=== PATIENT | female | born 1980 | race Caucasian/White ===

== ENCOUNTER 2018-07-17 22:40 | Emergency (ER) | payer BC ==
[2018-07-17 22:53] VITALS: BP 116/80
[2018-07-17] MEDS ORDERED: HYDROmorphone 1 MG/ML Syringe IM ONE (23:14)
--- NOTE | 2018-07-17 23:19 | EDM.PDOC ---
ED HPI GENERAL MEDICAL PROBLEM - General Chief Complaint: Headache Stated Complaint: HEADACHE RECENT EYE SURGERY THURSDAY Time Seen by Provider: 07/17/18 22:53 Source of Information: Reports: Patient History Limitations: Reports: No Limitations - History of Present Illness INITIAL COMMENTS - FREE TEXT/NARRATIVE: This is a 38-year-old female. Onset today around 11 AM with a frontal type headache going to her back down her neck and upper back. It is more of a pounding type sensation. She recently had cataract surgery in her right eye and she saw her eye doctor on Thursday and everything was healing well. She has not noticed any change per se in her vision in that right eye other than she can see now wants the cataract is gone. She has a history 4 years ago of having headaches like this that were thought to be due to her hormones in her cycle. She has been eating and drinking despite the pounding type headache. She also states that hurts in her upper back and neck especially if she lies down it seemed like it gets worse. She denies any fever or chills no cold no cough no ear pain no sore throat. generalized head and shoulders Pain Score (Numeric/FACES): 6 - Related Data Allergies Allergy/AdvReac Type Severity Reaction Status Date / Time codeine Allergy Tachycardia Verified 07/17/18 22:53 eletriptan HBr [From Relpax] Allergy Disorientat Verified 07/17/18 22:53 ion ranitidine HCl [From Zantac] Allergy Headache Verified 07/17/18 22:53 Home Meds: Home Meds Ibuprofen 800 mg PO Q8H #20 tablet 03/06/15 [Rx] Orphenadrine [Norflex] 100 mg PO BID PRN #10 tab 07/17/18 [Rx] PARoxetine HCl [Paxil] 20 mg PO DAILY 07/17/18 [History] [id number] [Cataract Opthalmic Solution] 1 ml EYEBOTH ASDIRECTED 07/17/18 [ History] Past Medical History HEENT History: Reports: Cataract Respiratory History: Reports: Asthma Neurological History: Reports: Migraines Psychiatric History: Reports: Depression - Past Surgical History HEENT Surgical History: Reports: Tonsillectomy GI Surgical History: Reports: Cholecystectomy Musculoskeletal Surgical History: Reports: Ganglion Cyst Social & Family History - Family History Family Medical History: Noncontributory - Tobacco Use Smoking Status *Q: Current Every Day Smoker Years of Tobacco use: 20 Packs/Tins Daily: 0.5 - Caffeine Use Caffeine Use: Reports: Coffee, Soda - Recreational Drug Use Recreational Drug Use: No ED ROS GENERAL - Review of Systems Review Of Systems: See Below Constitutional: Denies: Fever, Chills HEENT: Denies: Dental Pain, Eye Discharge, Eye Pain, Rhinitis, Sinus Problem, Throat Pain Respiratory: Denies: Shortness of Breath, Cough Cardiovascular: Reports: No Symptoms Endocrine: Reports: No Symptoms GI/Abdominal: Reports: No Symptoms : Reports: No Symptoms Musculoskeletal: Reports: Neck Pain, Back Pain Skin: Reports: No Symptoms Neurological: Reports: Headache. Denies: Confusion, Dizziness, Syncope, Trouble Speaking, Difficulty Walking Psychiatric: Reports: No Symptoms - Physical Exam Exam: See Below Exam Limited By: No Limitations General Appearance: Alert, WD/WN, No Apparent Distress Eye Exam: Bilateral Eye: Normal Fundi (Limited funduscopic exam appears to be normal), Normal Inspection, PERRL (Both eyes pupils are reactive), Other ( Anterior chamber in both eyes are clear) Ears: Normal External Exam, Normal Canal, Normal TMs Nose: Normal Inspection Throat/Mouth: Normal Inspection, Normal Lips, Normal Voice, No Airway Compromise Head Exam: Normocephalic Neck: Other (She complains of soreness in her muscles paraspinal to the base of her neck and up to the base of the skull though she seems to have good range of motion of her neck) Respiratory/Chest: No Respiratory Distress, Lungs Clear, Normal Breath Sounds Neuro Exam (Abbreviated): Alert, Oriented, Normal Cognition Back Exam: Other (She has soreness in her trapezius muscles and rhomboid muscles bilaterally on palpation, there is no vertebral column tenderness noted) Extremities: Normal Range of Motion Psychiatric: Normal Affect, Normal Mood Skin Exam: Warm, Dry Course - Vital Signs Last Recorded V/S: Last Vital Signs Temp 98 F 07/17/18 22:45 Pulse 72 07/17/18 22:45 Resp 18 07/17/18 22:45 BP 116/80 07/17/18 22:45 Pulse Ox 98 07/17/18 22:45 - Orders/Labs/Meds Orders: Active Orders 24 hr Category Date Time Status HYDROmorphone [Dilaudid] Med 07/17/18 23:14 Once 1 mg IM ONETIME ONE Departure - Departure Time of Disposition: 23:18 Disposition: Home, Self-Care 01 Condition: Good Clinical Impression: Tension-type headache, Cervical paraspinal muscle spasm, Muscle strain of upper back - Discharge Information *PRESCRIPTION DRUG MONITORING PROGRAM REVIEWED*: Not Applicable *COPY OF PRESCRIPTION DRUG MONITORING REPORT IN PATIENT SUMMER: Not Applicable Prescriptions: Orphenadrine [Norflex] 100 mg PO BID PRN #10 tab PRN Reason: Muscle Spasm Instructions: Tension Headache, Adult, [id number] Referrals: Elijah Garcia MD [Primary Care Provider] - Additional Instructions: When you get home and try to sleep at an incline of at least 30 or little higher so you don't seem to cause increased pounding of your headache, if there is residual of the headache in the morning takes a muscle relaxer, use ice or heat to your neck and back to help with the soreness of the muscles, follow-up with your family doctor this coming week for recheck especially if the headache continues or just doesn't won't go away, return to the ER if needed - My Orders Last 24 Hours: My Active Orders 07/17/18 23:14 HYDROmorphone [Dilaudid] 1 mg IM ONETIME ONE - Assessment/Plan Last 24 Hours: My Active Orders 07/17/18 23:14 HYDROmorphone [Dilaudid] 1 mg IM ONETIME ONE
[2018-07-17] MEDS ORDERED: Ondansetron 4 MG Tab.DIS PO ONE (23:54)
== END 2018-07-18 00:06 | disposition home or self-care (01) ==
LOC: JD.ED 22:40
DX: S29.012A Strain of muscle and tendon of back wall of thorax, initial encounter (principal); G44.209 Tension-type headache, unspecified, not intractable; J45.909 Unspecified asthma, uncomplicated; F17.210 Nicotine dependence, cigarettes, uncomplicated; Z88.5 Allergy status to narcotic agent; Z88.8 Allergy status to other drugs, medicaments and biological substances; Z79.899 Other long term (current) drug therapy; X58.XXXA Exposure to other specified factors, initial encounter
CPT/HCPCS: 96372; 99284; A9270; J1170; 99283

== ENCOUNTER 2020-11-02 19:38 | Emergency (ER) | payer BC ==
[2020-11-02] MEDS ORDERED: Acetaminophen/HYDROcodone 325-5 MG Tab PO ONE (20:07)
[2020-11-02] MEDS ORDERED: Tamsulosin 0.4 MG Cap.ER PO ONE (20:07)
[2020-11-02] MEDS ORDERED: Ondansetron 4 MG Tab.DIS PO ONE (20:07)
--- NOTE | 2020-11-02 20:13 | EDM.PDOC ---
ED HPI GENERAL MEDICAL PROBLEM - General Chief Complaint: Abdominal Pain Stated Complaint: abdominal pain Time Seen by Provider: 11/02/20 19:49 Source of Information: Reports: Patient History Limitations: Reports: No Limitations - History of Present Illness INITIAL COMMENTS - FREE TEXT/NARRATIVE: Mrs. Sahu is a very pleasant 14-year-old woman who now presents to the ED with suprapubic abdominal pressure with urinary urgency that developed around 18:00 this evening, followed by right flank pain that developed around 19:00. No associated fever, dysuria nausea, vomiting, constipation, or diarrhea, however, the patient reports that her urine was normal in appearance when she left the house, but appears to be reddish here in the ED. The patient states that she took 600 mg of ibuprofen around 18:30, and went to bed, but her pain only got worse, which prompted her to come to the ED. The patient states that she had virtually identical pain postoperatively, after undergoing a bilateral tube ligation on 10/16/2020. Here in the ED, the patient is found to be hemodynamically stable, afebrile, saturating 100% on room air. Prior to 10/16/2020, the patient denies having a recent fever, chills, sore throat, ear pain, nasal or sinus congestion, cough, dyspnea, chest pain, palpitations, nausea, vomiting, constipation, diarrhea, abdominal pain, urinary symptoms, recent weight gain or weight loss, recent bloody bowel movements or black bowel movements, recent joint aches, headaches, or rashes. The patient's PCP is Dr. Elijah Garcia. Her Die Barber is Dr. Clair Owen. She has not received an influenza vaccine this season, and declined an offer to receive one here in the ED. - Related Data Allergies Allergy/AdvReac Type Severity Reaction Status Date / Time codeine Allergy Tachycardia Verified 06/13/19 18:50 eletriptan HBr [From Relpax] Allergy Disorientat Verified 06/13/19 18:50 ion ranitidine HCl [From Zantac] Allergy Headache Verified 06/13/19 18:50 Home Meds: Home Meds Gabapentin [Neurontin] 300 mg PO DAILY PRN 06/13/19 [History] Past Medical History Respiratory History: Reports: Asthma (suspected as a child, not tested, no treatment) REGISTRY RN History: Reports: Endometriosis (laparoscopy-proven), Other (See Below) (Ovarian cysts) Psychiatric History: Reports: Depression (untreated) - Infectious Disease History Infectious Disease History: Reports: Chicken Pox, Shingles - Past Surgical History HEENT Surgical History: Reports: Adenoidectomy, Cataract Surgery (right only), Tonsillectomy GI Surgical History: Reports: Cholecystectomy (around 1999) Female Surgical History: Reports: Tubal Ligation (10/16/2020), Other (See Below) (Exploratory laparoscopy for endometriosis x 2) Musculoskeletal Surgical History: Reports: Ganglion Cyst (left foot) Social & Family History - Tobacco Use Tobacco Use Status *Q: Current Every Day Tobacco User Years of Tobacco use: 22 Packs/Tins Daily: 0.5 Packs/Tins Daily Comment: Down from 1 ppd - Caffeine Use Caffeine Use: Reports: Soda - Alcohol Use Alcohol Use History: Yes Alcohol Use Frequency: Socially - Recreational Drug Use Recreational Drug Use: Yes Drug Use in Last 12 Months: No Recreational Drug Type: Reports: Marijuana/Hashish (last smoked around 2001) - Living Situation & Occupation Living situation: Reports: , with Spouse, with Family (2 kids) Occupation: Employed ([employer]) ED ROS GENERAL - Review of Systems Review Of Systems: Comprehensive ROS is negative, except as noted in HPI. ED EXAM, RENAL/ - Physical Exam Exam: See Below Exam Limited By: No Limitations General Appearance: Alert, WD/WN, No Apparent Distress (minimal apparent discomfort) Eye Exam: Bilateral Eye: EOMI, Normal Inspection Ears: Normal External Exam, Hearing Grossly Normal Nose: Normal Inspection Throat/Mouth: Normal Voice, No Airway Compromise, Other (Wearing a mask) Head: Atraumatic, Normocephalic Neck: Normal Inspection, Full Range of Motion Respiratory/Chest: No Respiratory Distress, Lungs Clear, Normal Breath Sounds, No Accessory Muscle Use Cardiovascular: Normal Peripheral Pulses, Regular Rate, Rhythm, No Edema, No Gallop, No JVD, No Murmur, No Rub GI/Abdominal: Soft, No Organomegaly, No Distention, No Abnormal Bruit, No Mass, Tender (Suprapubic only, with no tenderness whatsoever elsewhere), Abnormal Bowel Sounds (diminished) Back Exam: Normal Inspection, Full Range of Motion, CVA Tenderness (R) (lower). No: CVA Tenderness (L) Extremities: Normal Inspection, Normal Range of Motion, No Pedal Edema, Normal Capillary Refill Neurological: Alert, Oriented, Normal Cognition, No Motor/Sensory Deficits Psychiatric: Normal Affect Skin Exam: Warm, Dry, Intact, Normal Color, No Rash Course - Vital Signs Last Recorded V/S: Last Vital Signs Temp 36.3 C 11/02/20 19:46 Pulse 72 11/02/20 19:46 Resp 18 11/02/20 19:46 BP 124/68 11/02/20 19:46 Pulse Ox 100 11/02/20 19:46 - Orders/Labs/Meds Orders: Active Orders 24 hr Category Date Time Status Strain Urine [RC] ASDIRECTED Care 11/02/20 20:08 Active Abdomen Pelvis wo Cont [CT] Stat Exams 11/02/20 20:07 Taken Labs: Laboratory Tests 11/02/20 Range/Units 19:50 Urine Color Brown H (Yellow) Urine Appearance Cloudy H (Clear) Urine pH 7.0 (5.0-8.0) Ur Specific [place] > or = 1.030 (1.005-1.030) Urine Protein 2+ H (Negative) Urine Glucose (UA) Negative (Negative) Urine Ketones Negative (Negative) Urine Occult Blood 3+ H (Negative) Urine Nitrite Negative (Negative) Urine Bilirubin 1+ H (Negative) Urine Urobilinogen 1.0 (0.2-1.0) Ur Leukocyte Esterase Negative (Negative) Urine RBC >100 H (0-5) /hpf Urine WBC 0-5 (0-5) /hpf Ur Squamous Epith Cells 5-10 H (0-5) /hpf Urine Bacteria Few (FEW) /hpf Urine Mucus Few (FEW) /hpf Meds: Medications Discontinued Medications Generic Name Dose Route Start Last Admin Trade Name Freq PRN Reason Stop Dose Admin Hydrocodone Bitart/Acetaminophen 2 tab 11/02/20 20:07 11/02/20 20:13 Loman 325-5 Mg PO 11/02/20 20:08 2 tab ONETIME ONE Administration Ondansetron HCl 4 mg 11/02/20 20:07 11/02/20 20:12 Zofran Odt PO 11/02/20 20:08 4 mg ONETIME ONE Administration Tamsulosin HCl 0.4 mg 11/02/20 20:07 11/02/20 20:13 Flomax PO 11/02/20 20:08 0.4 mg ONETIME ONE Administration - Re-Assessments/Exams Free Text/Narrative Re-Assessment/Exam: 11/02/20 20:08 The patient's history and physical examination are compelling for a right ureterolith, particularly since she states that her urine was normal in appearance when she left the house, but is reddish in appearance here in the ED. I have ordered a urinalysis and a CT of the abdomen and pelvis without contrast to evaluate. In the meantime, the patient will be given oral Loman, oral Zofran, and oral tamsulosin; she notes that when she was last here in April, it was very difficult to place an IV, requiring 7 attempts. She would prefer to not have an IV unless absolutely necessary. 11/02/20 20:56 CT of the abdomen and pelvis without contrast is read by [facility] as: 1. Bilateral adnexal cysts, larger on the left than the right. 2. Nonobstructing calculi in the right kidney. No hydronephrosis. 3. Benign adenoma in the left adrenal gland. The patient's urinalysis is remarkable for 3+ occult blood with >100 RBCs, negative leukocyte esterase with 0-5 WBCs, negative nitrites with few bacteria, and 5-10 squamous epithelial cells. 11/02/20 21:10 Test results discussed with the patient. The above results strongly suggest that she had a very tiny stone, likely a millimeter or so, that briefly got stuck in her lower right ureter, caused her symptoms and hematuria, then passed. We discussed the option of repeating a CT scan with oral and IV contrast, however, I am not recommending it, since an intestinal issue would not explain her hematuria. The patient agreed, and declined a repeat CT scan. I would expect her symptoms to resolve over the next 2 or 3 hours. Since no stone was seen in the bladder, she does not need to strain her urine. Departure - Departure Time of Disposition: 21:14 Disposition: Home, Self-Care 01 Condition: Good Clinical Impression: Ureterolithiasis - Discharge Information *PRESCRIPTION DRUG MONITORING PROGRAM REVIEWED*: Not Applicable *COPY OF PRESCRIPTION DRUG MONITORING REPORT IN PATIENT SUMMER: Not Applicable Referrals: Elijah Garcia MD [Primary Care Provider] - Clair Owen MD [Physician] - Forms: ED Department Discharge Additional Instructions: You were seen in the emergency room after developing lower abdominal pain with urinary urgency, followed by right flank pain and bloody appearing urine. Work-up in the ER included a urinalysis and a CT of your abdomen and pelvis. The CT scan found a stone in your right kidney and bilateral ovarian cysts, larger on the left than the right, otherwise, no significant abnormalities. Your urine found a great deal of blood, but no elevated white blood cells or bacteria to suggest an infection. Based on your history, physical exam, and ER tests, your earlier symptoms were most likely caused by a tiny kidney stone that you passed when you provided a urine sample. Your symptoms should resolve within the next few hours. If any other problems, please do not hesitate to return to the ER. Sepsis Event Note (ED) - Evaluation Sepsis Screening Result: No Definite Risk - Focused Exam Vital Signs: Vital Signs Temp Pulse Resp BP Pulse Ox 11/02/20 19:46 36.3 C 72 18 124/68 100 - My Orders Last 24 Hours: My Active Orders 11/02/20 20:07 Abdomen Pelvis wo Cont [CT] Stat 11/02/20 20:08 Strain Urine [RC] ASDIRECTED - Assessment/Plan Last 24 Hours: My Active Orders 11/02/20 20:07 Abdomen Pelvis wo Cont [CT] Stat 11/02/20 20:08 Strain Urine [RC] ASDIRECTED
[2020-11-02 20:15] VITALS: PULSE 72
[2020-11-02 21:32] VITALS: BP 119/55
--- NOTE | 2020-11-03 11:17 | CT ---
CT abdomen and pelvis Technique: Multiple axial sections were obtained from above the dome of the diaphragm inferiorly through the pubic symphysis. Intravenous and oral contrast was not utilized. Reconstructed coronal and sagittal images were obtained. Comparison: Previous CT abdomen and pelvis study of 05/30/13. Findings: Small nonobstructing calculus is identified within the lower right kidney measuring approximately 4.4 mm. Small calculus is seen within the dependent portion of the bladder measuring about 2.2 mm in size which is felt compatible with previous right ureteral stone. Visualized lung bases show nothing acute. Liver shows a small low-density lesion within the right lobe most likely representing minimal cyst. Spleen appears within normal limits. Right adrenal gland shows no nodule. Left adrenal gland shows a small adrenal adenoma measuring 1.6 cm in size. Pancreas is within normal limits. Surgical clips are seen from prior cholecystectomy. Aorta shows atherosclerotic change which continues into the iliac vessels. No retroperitoneal adenopathy or mesenteric abnormalities are seen. Appendix is seen which is normal. 3.2 cm cyst is noted within the right ovary. Larger cyst is seen within the presumed left ovary measuring about 4.7 cm. No free fluid or inflammatory change is appreciated. Bone window settings were reviewed which show no acute osseous finding. Impression: 1. Small calcification within the dependent bladder measuring approximately 2.2 mm in size compatible with recently passed right ureteral stone. 2. 4.4 mm stone within the lower right kidney. 3. Bilateral adrenal cysts. Right adrenal cyst measures 3.2 cm and left adrenal cyst measures 4.7 cm. 4. Other findings as noted above believed to be incidental. Diagnostic code #3 I agree with preliminary report from [facility], finalized on 11/02/20, 9:52 PM DIGITAL STRATEGIST SENIOR MANAGER
== END 2020-11-02 21:34 | disposition home or self-care (01) ==
LOC: JD.ED 19:38
DX: N20.2 Calculus of kidney with calculus of ureter (principal); J45.909 Unspecified asthma, uncomplicated; F17.210 Nicotine dependence, cigarettes, uncomplicated; Z88.5 Allergy status to narcotic agent; Z88.8 Allergy status to other drugs, medicaments and biological substances
CPT/HCPCS: 74176; 81001; 99284; A9270

== ENCOUNTER 2020-12-02 15:31 | Emergency (ER) | payer BC ==
[2020-12-02 16:29] VITALS: BP 143/80; PULSE 122
--- NOTE | 2020-12-02 17:15 | EDM.PDOC ---
ED HPI GENERAL MEDICAL PROBLEM - General Chief Complaint: Laceration Stated Complaint: L INDEX FINGER LAC Time Seen by Provider: 12/02/20 16:55 Source of Information: Reports: Patient, RN Notes Reviewed History Limitations: Reports: No Limitations - History of Present Illness INITIAL COMMENTS - FREE TEXT/NARRATIVE: Patient is a 40-year-old female who presents to the ED for evaluation of her left index finger laceration. Patient states that she was using a kitchen knife, and ended up avulsing some skin off of her left index finger, on the radial aspect. She did not hit the nail, and denies any numbness or tingling to the injury. She has all range of motion. Patient denies any other sick-like symptoms, fever/chills, cough/shortness of breath, nausea/vomiting/diarrhea. Patient is up-to-date on her tetanus booster. Left Finger-Index Pain Score (Numeric/FACES): 5 - Related Data Allergies Allergy/AdvReac Type Severity Reaction Status Date / Time codeine Allergy Severe Tachycardia Verified 12/02/20 16:21 eletriptan HBr [From Relpax] Allergy Severe Disorientat Verified 12/02/20 16:21 ion ranitidine HCl [From Zantac] Allergy Severe Headache Verified 12/02/20 16:21 Home Meds: Home Meds Albuterol Sulfate [Proventil Hfa] 2 puff INH ASDIRECTED 12/02/20 [History] Gabapentin [Neurontin] 600 mg PO ASDIRECTED PRN 12/02/20 [History] Past Medical History HEENT History: Reports: Cataract Respiratory History: Reports: Asthma GANG BORE OPERATOR History: Reports: Endometriosis, Other (See Below) Other GANG BORE OPERATOR History: fallopian tubes removed Neurological History: Reports: Migraines Psychiatric History: Reports: Depression - Infectious Disease History Infectious Disease History: Reports: Chicken Pox, Shingles - Past Surgical History HEENT Surgical History: Reports: Adenoidectomy, Cataract Surgery, Tonsillectomy GI Surgical History: Reports: Cholecystectomy Female Surgical History: Reports: Tubal Ligation, Other (See Below) Musculoskeletal Surgical History: Reports: Ganglion Cyst Social & Family History - Family History Family Medical History: No Pertinent Family History - Tobacco Use Tobacco Use Status *Q: Current Every Day Tobacco User Years of Tobacco use: 20 Packs/Tins Daily: 0.7 - Caffeine Use Caffeine Use: Reports: Coffee, Soda - Recreational Drug Use Recreational Drug Use: No - Living Situation & Occupation Living situation: Reports: , with Spouse, with Family (2 kids) Occupation: Employed ([employer]) ED ROS GENERAL - Review of Systems Review Of Systems: Comprehensive ROS is negative, except as noted in HPI. ED EXAM, SKIN/RASH Exam: See Below Exam Limited By: No Limitations General Appearance: Alert, WD/WN, No Apparent Distress Respiratory/Chest: No Respiratory Distress, Lungs Clear, Normal Breath Sounds, No Accessory Muscle Use, Chest Non-Tender Cardiovascular: Normal Peripheral Pulses, Regular Rate, Rhythm, No Edema Peripheral Pulses: 2+: Radial (L), Radial (R) Extremities: Normal Range of Motion, Normal Capillary Refill Neurological: Alert, Oriented, Normal Cognition, No Motor/Sensory Deficits Psychiatric: Normal Affect, Normal Mood Skin: Warm, Dry, Intact, Normal Color, No Rash Course - Vital Signs Last Recorded V/S: Last Vital Signs Temp 97.5 F 12/02/20 16:28 Pulse 122 H 12/02/20 16:28 Resp 20 12/02/20 16:28 BP 143/80 H 12/02/20 16:28 Pulse Ox 100 12/02/20 16:28 - Re-Assessments/Exams Free Text/Narrative Re-Assessment/Exam: 12/02/20 17:18 Patient presents to the ED for her finger laceration, unfortunately there is no skin to repair. The area will be bandaged with a pressure gauze, she will be directed to keep this on for the next 24 to 48 hours or as long as she can. Departure - Departure Time of Disposition: 17:13 Disposition: Home, Self-Care 01 Condition: Good Clinical Impression: Laceration of left index finger Qualifiers: Encounter type: initial encounter Damage to nail status: without damage Foreign body presence: without foreign body Qualified Code(s): S61.211A - Laceration without foreign body of left index finger without damage to nail, initial encounter - Discharge Information *PRESCRIPTION DRUG MONITORING PROGRAM REVIEWED*: No *COPY OF PRESCRIPTION DRUG MONITORING REPORT IN PATIENT SUMMER: No Instructions: Laceration Care, Adult, [id number] Referrals: Elijah Garcia MD [Primary Care Provider] - Forms: ED Department Discharge Additional Instructions: You have been evaluated in the ED for your laceration. Unfortunately your wound cannot be repaired with sutures, as there was no skin to sew back onto. We tried to use silver nitrate to the area to provide hemostasis, this worked quite well, you did have a pressure bandage applied at today's visit, I recommend you keep this on throughout the night, and into as much of tomorrow as you possibly can. Please keep this area clean and dry, you may cleanse with regular soap and water. No vigorous scrubbing. Please try to avoid submerging the affected area in water for prolonged periods of time until the sutures are removed. Watch out for signs of infection like increased redness, swelling, pain at the laceration site, or if you should develop any fevers or chills. Please return to ED if your symptoms change or worsen. Sepsis Event Note (ED) - Evaluation Sepsis Screening Result: No Definite Risk - Focused Exam Vital Signs: Vital Signs Temp Pulse Resp BP Pulse Ox 12/02/20 16:28 97.5 F 122 H 20 143/80 H 100
== END 2020-12-02 17:20 | disposition home or self-care (01) ==
LOC: JD.ED 15:31
DX: S61.211A Laceration without foreign body of left index finger without damage to nail, initial encounter (principal); J45.909 Unspecified asthma, uncomplicated; Z72.0 Tobacco use; Z88.5 Allergy status to narcotic agent; Z88.8 Allergy status to other drugs, medicaments and biological substances; W26.0XXA Contact with knife, initial encounter
CPT/HCPCS: 99282

== ENCOUNTER 2022-08-27 11:41 | Emergency (ER) | payer OTHER, BC, MEDICAID ==
[2022-08-27 11:55] VITALS: BP 117/68; PULSE 85
== END 2022-08-27 13:17 | disposition home or self-care (01) ==
LOC: JD.ED 11:41
DX: S29.012A Strain of muscle and tendon of back wall of thorax, initial encounter (principal); F17.210 Nicotine dependence, cigarettes, uncomplicated; Z88.5 Allergy status to narcotic agent; Z88.8 Allergy status to other drugs, medicaments and biological substances; X50.0XXA Overexertion from strenuous movement or load, initial encounter
CPT/HCPCS: 99283

== ENCOUNTER 2024-03-02 00:17 | Emergency (ER) | payer BC, OTHER ==
[2024-03-02] MEDS: Sodium Chloride 0.9% 1,000 ML IV ONE (01:45)
[2024-03-02] MEDS: Ketorolac 15 MG/ML SDV IVPUSH ONE ×2 (01:47→04:43)
[2024-03-02] MEDS: Ondansetron 4 MG/2 ML SDV IVPUSH ONE ×2 (01:47→04:42)
[2024-03-02] MEDS: Metoclopramide 10 MG/2 ML SDV IVPUSH ONE (01:48)
[2024-03-02 01:49] LABS: BASOPHILS ABSOLUTE AUTO 0.1 K/mm3 (0.0-0.2); BASOPHILS PERCENT AUTO 0.7 % (0.0-1.0); EOSINOPHILS ABSOLUTE AUTO 0.5 K/mm3 (0.0-0.4); EOSINOPHILS PERCENT AUTO 4.8 % (0.0-6.0); HEMATOCRIT 39.5 % (37.0-47.0); HEMOGLOBIN 13.2 gm/dl (12.0-16.0); IMMATURE GRAN ABSOLUTE AUTO 0.02 K/mm3 (0.00-0.05); IMMATURE GRAN PERCENT AUTO 0.2 % (0.0-0.4); LYMPHOCYTES ABSOLUTE AUTO 3.1 K/mm3 (1.0-4.8); LYMPHOCYTES PERCENT AUTO 31.7 % (24.0-44.0); MEAN CORPUSCULAR HEMOGLOBIN 31.1 pg (28.0-32.0); MEAN CORPUSCULAR HGB CONC 33.4 g/dl (32.0-36.0); MEAN CORPUSCULAR VOLUME 92.9 fl (83.0-99.0); MEAN PLATELET VOLUME 9.9 fl (9.4-12.3); MONOCYTES ABSOLUTE AUTO 0.7 K/mm3 (0.0-0.8); MONOCYTES PERCENT AUTO 6.9 % (0.0-8.0); NEUTROPHILS ABSOLUTE AUTO 5.5 K/mm3 (1.8-7.7); NEUTROPHILS PERCENT AUTO 55.7 % (41.0-71.0); PLATELET COUNT,PLT 387 K/mm3 (150-400); RED BLOOD CELL COUNT 4.25 M/mm3 (4.10-5.30); WHITE BLOOD CELL COUNT,WBC 9.82 K/mm3 (3.9-11.3)
[2024-03-02 02:26] LABS: A/G RATIO 0.9 (1-2); ALBUMIN 3.2 g/dl (3.4-5.0); ANION GAP 12.2 (5-15); BILIRUBIN TOTAL 0.1 mg/dL (0.2-1.0); BUN/CREATININE RATIO 12.5 (14-18); CALCIUM 8.6 mg/dL (8.5-10.1); CREATININE 0.8 mg/dL (0.55-1.02); EST CRCL DRUG DOSING (CG) 88.18 mL/min; POTASSIUM,K 4.2 mEq/L (3.5-5.1); PROTEIN TOTAL,TP 6.6 g/dl (6.4-8.2)
[2024-03-02] MEDS: Acetaminophen 325 MG Tab PO ONE (04:41)
[2024-03-02] MEDS: diphenhydrAMINE 50 MG/ML SDV IVPUSH ONE (04:44)
[2024-03-02 06:30] VITALS: BP 147/79; PULSE 73
== END 2024-03-02 06:23 | disposition home or self-care (01) ==
LOC: JD.ED 00:17
DX: G43.909 Migraine, unspecified, not intractable, without status migrainosus (principal); J45.909 Unspecified asthma, uncomplicated; Z79.899 Other long term (current) drug therapy; Z88.5 Allergy status to narcotic agent; Z88.8 Allergy status to other drugs, medicaments and biological substances
CPT/HCPCS: 36415; 70450; 80053; 83690; 84703; 85025; 96361; 96374; 96375; 96376; 99284; A9270; J1200; J1885; J2405; J2765; J7030; 99283

== ENCOUNTER 2024-12-05 16:42 | Emergency (ER) | payer SELFPAY ==
[2024-12-05 19:14] LABS: BASOPHILS ABSOLUTE AUTO 0.1 K/mm3 (0.0-0.2); BASOPHILS PERCENT AUTO 0.4 % (0.0-1.0); EOSINOPHILS ABSOLUTE AUTO 0.2 K/mm3 (0.0-0.4); EOSINOPHILS PERCENT AUTO 1.2 % (0.0-6.0); HEMATOCRIT 43.7 % (37.0-47.0); HEMOGLOBIN 14.6 gm/dl (12.0-16.0); IMMATURE GRAN ABSOLUTE AUTO 0.03 K/mm3 (0.00-0.05); IMMATURE GRAN PERCENT AUTO 0.2 % (0.0-0.4); LYMPHOCYTES ABSOLUTE AUTO 3.8 K/mm3 (1.0-4.8); LYMPHOCYTES PERCENT AUTO 28.7 % (24.0-44.0); MEAN CORPUSCULAR HEMOGLOBIN 31.3 pg (28.0-32.0); MEAN CORPUSCULAR HGB CONC 33.4 g/dl (32.0-36.0); MEAN CORPUSCULAR VOLUME 93.8 fl (83.0-99.0); MEAN PLATELET VOLUME 10.3 fl (9.4-12.3); MONOCYTES ABSOLUTE AUTO 0.8 K/mm3 (0.0-0.8); MONOCYTES PERCENT AUTO 6.3 % (0.0-8.0); NEUTROPHILS ABSOLUTE AUTO 8.3 K/mm3 (1.8-7.7); NEUTROPHILS PERCENT AUTO 63.2 % (41.0-71.0); PLATELET COUNT,PLT 333 K/mm3 (150-400); RED BLOOD CELL COUNT 4.66 M/mm3 (4.10-5.30); WHITE BLOOD CELL COUNT,WBC 13.12 K/mm3 (3.9-11.3)
[2024-12-05 20:14] LABS: ALBUMIN 3.6 g/dl (3.4-5.0); BILIRUBIN TOTAL 0.5 mg/dL (0.2-1.0); CALCIUM 9.3 mg/dL (8.5-10.1); EST CRCL DRUG DOSING (CG) 69.81 mL/min; PROTEIN TOTAL,TP 7.1 g/dl (6.4-8.2); TSH 0.521 uIU/mL (0.358-3.74)
[2024-12-05 21:31] LABS: BARBITURATE SCREEN,URINE NEGATIVE (CUTOFF=200); BENZODIAZEPINES SCREEN,URINE NEGATIVE (CUTOFF=150); BUPRENORPHINE SCREEN,URINE NEGATIVE (CUTOFF=10); METHADONE SCREEN, URINE NEGATIVE (CUTOFF=200); METHAMPHETAMINES SCREEN, URINE NEGATIVE (CUTOFF=500); OXYCODONE SCREEN,URINE NEGATIVE (CUT0FF=100); THC SCREEN,URINE 20 NG/ML NEGATIVE (CUTOFF=50)
[2024-12-05 21:33] LABS: AMPHETAMINES SCREEN, URINE NEGATIVE (CUTOFF=500)
[2024-12-05 22:24] VITALS: BP 130/58; PULSE 82
== END 2024-12-05 22:23 | disposition home or self-care (01) ==
LOC: JD.ED 16:42
DX: F43.21 Adjustment disorder with depressed mood (principal); R45.851 Suicidal ideations; J45.909 Unspecified asthma, uncomplicated; F17.210 Nicotine dependence, cigarettes, uncomplicated; Z79.899 Other long term (current) drug therapy; Z88.5 Allergy status to narcotic agent; Z88.8 Allergy status to other drugs, medicaments and biological substances
CPT/HCPCS: 36415; 80053; 80143; 80179; 80306; 80307; 84443; 84703; 85025; 99284